=== PATIENT | female | born 1990 | race Caucasian/White ===

== ENCOUNTER 2019-03-04 07:30 | Inpatient (IN) | payer OTHER ==
[~2019-03-04] VITALS: Ht 172.7 cm; Wt 143.0 kg
[~2019-03-04 07:30] MED LIST: ABX; BC PILLS; BCP; ERYT500 PO; FAMO20 PO; HYDACE5 PO; IBUP800 PO; LORA1 PO; METO10 PO; ONDA4ODT MM; ONDA8ODT MM; OXYACE5T PO; PROC25S PR; Verotin-Gr Cap1 EACH PO; [UNRECOGNIZED DRUG - REMARK]
[2019-05-03 10:22] LABS: BASOPHILS ABSOLUTE AUTO 0.05 K/mm3 (0.00-0.23); BASOPHILS PERCENT AUTO 1 % (0-2); EOSINOPHILS ABSOLUTE AUTO 0.11 K/mm3 (0.00-0.68); EOSINOPHILS PERCENT AUTO 1 % (0-6); Hematocrit 35.1 % (33.0-51.0); Hemoglobin 10.7 g/dL (11.5-16.0); IMMATURE GRAN ABSOLUTE AUTO 0.14 K/mm3 (0.00-0.10); IMMATURE GRAN PERCENT AUTO 2 % (0-1); LYMPHOCYTES ABSOLUTE AUTO 1.68 K/mm3 (0.84-5.20); LYMPHOCYTES PERCENT AUTO 18 % (21-46); MONOCYTES ABSOLUTE AUTO 0.31 K/mm3 (0.16-1.47); MONOCYTES PERCENT AUTO 3 % (4-13); Mean Corpuscular HGB 25.1 pg (26.0-34.0); Mean Corpuscular HGB Conc 30.5 g/dL (31.5-36.5); Mean Corpuscular Volume 82 fL (80-100); Mean Platelet Volume 12.8 fL (9.1-12.4); NEUTROPHILS ABSOLUTE AUTO 7.08 K/mm3 (1.96-9.15); NEUTROPHILS PERCENT AUTO 76 % (41-73); Platelet Count 170 K/mm3 (150-400); RDW Coefficient Variation 14.7 % (11.7-14.2); RDW Standard Deviation 44.3 fL (35.1-46.3); Red Blood Cell Count 4.26 M/mm3 (3.80-5.20); White Blood Cell Count 9.37 K/mm3 (4.00-11.30)
--- NOTE | 2019-05-03 10:43 | NUR ---
PRE-OP TEACHING AND INSTRUCTIONS GIVEN RELATED TO PRE-OP, SIGNATURE COMPLETED EXCEPT CONSENT FOR PERSON IN OR - [place] NOT HERE TODAY. PRE-OP SCRUBS GIVEN AND EXPLANINED W/COPY OF DIRECTIONS - PT VERBALIZED UNDERSTANDING SIGNED AND WITNESSED REFUSAL TO REMOVE JEWELRY FOR TX AND/OR OR PROCEDURE - UNABLE TO REMOVE NOSE PIERCING AND BILATERAL EAR PIERCINGS - PT VERBALIZED UNDERSTANDING TO BE HERE AT 0530 05/04/19, DENIED TOUR OR QUESTIONS AT THIS TIME. REQUEST LC AFTER C/S - WRITTEN ON [employer]
--- NOTE | 2019-05-04 09:01 | NUR ---
05/04/19 0901 Astrid Drake 0813 DELIVERY VIABLE MALE , WEIGHT 3605 GMS, 7LBS 15 OZ, LENGTH 21 INCHES, HEAD 15 INCHES, CHEST 13 INCHES. APGARS 8/8. UMBILICIAL CORD BLOOD COLLECTED, GIVEN TO CHRISTIANA GARCIA.
[2019-05-05 06:35] LABS: Hemoglobin 9.5 g/dL (11.5-16.0); Mean Corpuscular HGB 24.9 pg (26.0-34.0); Mean Corpuscular HGB Conc 30.6 g/dL (31.5-36.5); Mean Corpuscular Volume 81 fL (80-100); Mean Platelet Volume 12.6 fL (9.1-12.4); Platelet Count 138 K/mm3 (150-400); RDW Coefficient Variation 14.9 % (11.7-14.2); RDW Standard Deviation 44.4 fL (35.1-46.3); Red Blood Cell Count 3.81 M/mm3 (3.80-5.20); White Blood Cell Count 11.51 K/mm3 (4.00-11.30)
--- NOTE | 2019-05-05 16:10 | NUR ---
Assumed care from Zahra Segura RN.
--- NOTE | 2019-05-05 16:34 | NUR ---
CONSULT PRIOR TO DISCHARGE HOME. BF HER FIRST BABY DID NOT GO WELL, AND HER PRODUCTION WAS LIMITED. INSTRUCT/DEMO SELF EBM TO HELP ENTICE A LATCH, POSITIONING TO HELP ACHIEVE A DEEPER ASYMETRIC LATCH AND FURTHER WIDEN THE LATCH. SHE IS LOVING AND HANDLES BABY WELL. HAS ALREADY STARTED PUMPING TO STIMULATE PRODUCTION. INSTRUCT TO PUMP FOR 10 MINUTES PC QF UNTIL SHE CAN PUMP 1 OZ OF MILK, THEN DECREASE PUMPING TO ONLY 5 MINUTES 2-3X/DAY FOR COMFORT OF ENGORGEMENT. INSTRUCT IN CHANGES TO EXPECT DURING THE FIRST WEEK WITH BABY AND WITH FEEDINGS AND REFERRED TO SEVERAL PAGES IN THE BF BOOKLET FOR PHOTOS AND INFORMATION. QUESTIONS ANSWERED, MOTIVATED LEARNER.
--- NOTE | 2019-05-05 17:00 | NUR ---
Medicated pt w/motirn per request. Denies other needs at this time.
--- NOTE | 2019-05-06 10:38 | NUR ---
READY TO DC HOME, WILL STOP BY DR CRAWFORD OFFICE TO GET SCRIPTS
== END 2019-05-06 10:45 | disposition home or self-care (01) | DRG 788 ==
LOC: BC 05-04 05:34
PROVIDERS: ADMIT Obstetrics & Gynecology
PROC: 10D00Z1 Extraction of Products of Conception, Low, Open Approach (ICD-10-PCS; principal; 2019-05-04 07:30)
DX: O34.211 Maternal care for low transverse scar from previous cesarean delivery (principal); Z3A.39 39 weeks gestation of pregnancy; Z37.0 Single live birth
CPT/HCPCS: 36415; 85025; 85027; 85460; 96372; J0694; J1200; J1885; J2370; J2405; J2590; J2765; J2790; J3010; J7120

== ENCOUNTER → 2019-04-15 | Outpatient (CLI) | payer OTHER | END | disposition home or self-care (01) | LOC: LAB SHORT 15:31 → LAB 15:31 | DX: Z34.80 Encounter for supervision of other normal pregnancy, unspecified trimester (principal) | CPT/HCPCS: 87081; 87653 ==

== ENCOUNTER → 2019-11-23 | Outpatient (CLI) | payer OTHER | END | disposition home or self-care (01) | LOC: LAB 11:10 → LAB SHORT 11:10 | PROVIDERS: Family Medicine | DX: Z12.4 Encounter for screening for malignant neoplasm of cervix (principal) | CPT/HCPCS: 87624; 87625; G0123 ==

== ENCOUNTER → 2019-12-07 | Outpatient (CLI) | payer OTHER | END | disposition home or self-care (01) | LOC: PLD 07:59 → LAB SHORT 07:59 | DX: N87.0 Mild cervical dysplasia (principal) | CPT/HCPCS: 88305 ==

== ENCOUNTER → 2020-08-03 | Outpatient (CLI) | payer OTHER | LOC: PLD 09:17 → LAB SHORT 09:17 | DX: D22.4 Melanocytic nevi of scalp and neck (principal); D48.5 Neoplasm of uncertain behavior of skin | CPT/HCPCS: 88305 ==

== ENCOUNTER → 2021-09-18 | Outpatient (CLI) | payer OTHER ==
[~2021-09-18] MED LIST changes: +DOCU100 PO; +ONDA4 PO
[2021-09-19 10:09] LABS: Candida species (DNA Probe) Negative (NEGATIVE); G. vaginalis (DNA Probe) Negative (NEGATIVE); T. vaginalis (DNA Probe) Negative (NEGATIVE)
[2021-09-20 16:11] LABS: HPV 16 Negative (Negative); HPV 18 Negative (Negative); HPV OTHER HR TYPES Positive (Negative)
== END | disposition home or self-care (01) ==
LOC: LAB SHORT 18:21
PROVIDERS: Family Medicine
DX: Z12.4 Encounter for screening for malignant neoplasm of cervix (principal); Z11.3 Encounter for screening for infections with a predominantly sexual mode of transmission
CPT/HCPCS: 87480; 87510; 87660

== ENCOUNTER → 2021-11-06 | Outpatient (CLI) | payer OTHER | END | disposition home or self-care (01) | LOC: LAB SHORT 07:45 | DX: R87.610 Atypical squamous cells of undetermined significance on cytologic smear of cervix (ASC-US) (principal); R87.810 Cervical high risk human papillomavirus (HPV) DNA test positive | CPT/HCPCS: 88305 ==

== ENCOUNTER → 2022-10-22 | Outpatient (CLI) | payer OTHER ==
[2022-10-24 18:10] LABS: HPV 16 Negative (Negative); HPV 18 Negative (Negative); HPV OTHER HR TYPES Positive (Negative)
== END | disposition home or self-care (01) ==
LOC: LAB SHORT 17:40 → LAB 17:40
PROVIDERS: Family Medicine
DX: Z12.4 Encounter for screening for malignant neoplasm of cervix (principal)
CPT/HCPCS: 87624; G0145

== ENCOUNTER → 2022-12-05 | Outpatient (CLI) | payer OTHER | END | disposition home or self-care (01) | LOC: LAB SHORT 08:07 → PLD 08:07 | DX: R87.810 Cervical high risk human papillomavirus (HPV) DNA test positive (principal) | CPT/HCPCS: 88305 ==

== ENCOUNTER → 2023-02-20 | Outpatient (CLI) | payer OTHER ==
[2023-02-20 14:55] LABS: G. vaginalis (DNA Probe) Positive (NEGATIVE); T. vaginalis (DNA Probe) Negative (NEGATIVE)
[2023-02-20 14:56] LABS: Candida species (DNA Probe) Negative (NEGATIVE)
[2023-02-22 01:09] LABS: CHLAMYDIA TRACHOMATIS, NAA Negative (Negative)
== END | disposition home or self-care (01) ==
LOC: EDSTATUS 10:30 → LAB SHORT 11:09 → LAB 11:09
PROVIDERS: Advanced Practice Midwife
DX: Z11.3 Encounter for screening for infections with a predominantly sexual mode of transmission (principal); N76.0 Acute vaginitis
CPT/HCPCS: 87480; 87491; 87510; 87591; 87660

== ENCOUNTER → 2023-07-16 | Outpatient (CLI) | payer OTHER | LOC: LAB 17:41 → LAB SHORT 17:41 | DX: R30.0 Dysuria (principal) | CPT/HCPCS: 87077; 87086; 87186 ==

== ENCOUNTER → 2023-10-28 | Outpatient (CLI) | payer OTHER | LOC: LAB 17:16 → LAB SHORT 17:16 | DX: Z12.4 Encounter for screening for malignant neoplasm of cervix (principal) | CPT/HCPCS: G0123 ==

== ENCOUNTER → 2024-03-25 | Outpatient (CLI) | payer OTHER ==
[2024-03-31 13:14] LABS: OVA AND PARASITE,FECAL INTERP Negative (Negative)
== END ==
LOC: LAB 23:15 → LAB SHORT 23:15
PROVIDERS: Family Medicine
DX: B83.9 Helminthiasis, unspecified (principal)
CPT/HCPCS: 87177; 87209

== ENCOUNTER → 2024-08-05 | Outpatient (CLI) | payer OTHER | LOC: LAB SHORT 18:14 → LAB 18:14 | DX: Z34.83 Encounter for supervision of other normal pregnancy, third trimester (principal) | CPT/HCPCS: 87081; 87150 ==

== ENCOUNTER 2024-08-17 13:13 | Inpatient (IN) | payer OTHER ==
[2024-08-17] VITALS (25 sets, daily range): BP systolic 76–131; BP diastolic 43–66
[~2024-08-17] VITALS: Ht 172.7 cm; Wt 101.4 kg
[2024-08-17] MEDS ORDERED: Metoclopramide HCl 5MG / ML 2ML Vial IV ONE (13:45)
[2024-08-17] MEDS ORDERED: Lactated Ringer's 1,000 ML IV SCH ×2 (13:45)
[2024-08-17] MEDS ORDERED: Citric Acid/Sodium Citrate 30 ML BTL PO SCH (13:45)
[2024-08-17] MEDS ORDERED: CeFAZolin Sodium 2,000 MG in NS 100 ML IV SCH (13:45)
[2024-08-17] MEDS ORDERED: Lactated Ringer's 1,000 ML IV ONE (13:51)
[2024-08-17 14:10] LABS: BASOPHILS PERCENT AUTO 1 % (0-2); EOSINOPHILS ABSOLUTE AUTO 0.06 K/mm3 (0.00-0.68); EOSINOPHILS PERCENT AUTO 1 % (0-6); Hematocrit 34.4 % (33.0-51.0); Hemoglobin 11.2 g/dL (11.5-16.0); IMMATURE GRAN ABSOLUTE AUTO 0.22 K/mm3 (0.00-0.10); IMMATURE GRAN PERCENT AUTO 2 % (0-1); LYMPHOCYTES ABSOLUTE AUTO 2.23 K/mm3 (0.84-5.20); LYMPHOCYTES PERCENT AUTO 18 % (21-46); MONOCYTES ABSOLUTE AUTO 0.49 K/mm3 (0.16-1.47); MONOCYTES PERCENT AUTO 4 % (4-13); Mean Corpuscular HGB 27.1 pg (26.0-34.0); Mean Corpuscular HGB Conc 32.6 g/dL (31.5-36.5); Mean Corpuscular Volume 83 fL (80-100); Mean Platelet Volume 11.8 fL (9.1-12.4); NEUTROPHILS ABSOLUTE AUTO 9.27 K/mm3 (1.96-9.15); NEUTROPHILS PERCENT AUTO 75 % (41-73); Platelet Count 164 K/mm3 (150-400); RDW Coefficient Variation 13.4 % (11.7-14.2); RDW Standard Deviation 40.6 fL (35.1-46.3); Red Blood Cell Count 4.14 M/mm3 (3.80-5.20); White Blood Cell Count 12.37 K/mm3 (4.00-11.30)
[2024-08-17 15:56] LABS: Albumin, Blood 2.8 g/dL (3.4-5.0); Albumin/Globulin Ratio 0.7 (0.8-1.8); Bilirubin, Total 0.5 mg/dL (0.1-1.0); Bun/Creatinine Ratio 18.2 (12.0-20.0); Calcium, Blood 8.8 mg/dL (8.5-10.1); Creatinine, Blood 0.55 mg/dL (0.40-1.00); Globulin, Blood 3.8 g/dL (2.2-4.0); Potassium, Blood 4.1 mmol/L (3.5-5.5); Total Protein, Blood 6.6 g/dL (6.4-8.2)
[2024-08-17] MEDS ORDERED: FentaNYL Citrate 50 MCG/ML 2 ML Injection ONE (16:42)
[2024-08-17] MEDS ORDERED: Phenylephrine HCl 100 MCG/ML-NS 10MLSYR (1MG/10ML) ONE (16:45)
[2024-08-17] MEDS ORDERED: Oxytocin 10 Unit / ML Vial ONE ×2 (17:03→18:16)
--- NOTE | 2024-08-17 17:57 | NUR ---
08/17/24 1757 Soha Lara FHTS 138 PRIOR TO PROCEDURE. DELIVERY OF VIABLE FEMALE , APGARS 8/9. WEIGHT 3755 GMS. PLACENTA DELIVERED COMPLETE, MANUALLY. CORD BLOOD SENT WITH BABY'S NURSE.
[2024-08-17] MEDS ORDERED: Rho(D) Immune Globulin 300 MCG / SYR IM ONE ×2 (18:50→21:20)
[2024-08-17] MEDS ORDERED: OxyCODONE HCL 5 MG TAB PO PRN (18:50)
[2024-08-17] MEDS ORDERED: Lanolin Cream TOP PRN (18:50)
[2024-08-17] MEDS ORDERED: Misoprostol 200 MCG Tab PR PRN (18:50)
[2024-08-17] MEDS ORDERED: Promethazine HCl 25 MG Tab PO PRN (18:50)
[2024-08-17] MEDS ORDERED: Methylergonovine Maleate 0.2 MG Tab PO PRN (18:55)
[2024-08-17] MEDS ORDERED: Acetaminophen 500 MG Tab PO PRN (18:55)
[2024-08-17] MEDS ORDERED: Ondansetron HCl 2 MG / ML 2ML Vial IV PRN (18:55)
[2024-08-17] MEDS ORDERED: Carboprost Tromethamine 250 MCG/ML 1ML Amp IM PRN (18:55)
[2024-08-17] MEDS ORDERED: Methylergonovine Maleate 0.2MG / ML 1ML Amp IM PRN (18:55)
[2024-08-17] MEDS ORDERED: ePHEDrine Sulfate 50 MG/ML 1ML Injection IV PRN (19:00)
[2024-08-17] MEDS ORDERED: Ketorolac Tromethamine 30mg Vial IV SCH (19:00)
[2024-08-17] MEDS ORDERED: Naloxone HCl 0.4MG / ML 1ML Vial IV PRN (19:00)
[2024-08-17] MEDS ORDERED: Misoprostol 200 MCG Tab BC ONE (19:05)
[2024-08-18] VITALS (7 sets, daily range): BP systolic 101–119; BP diastolic 57–70
[2024-08-18] MEDS ORDERED: Ibuprofen 400 MG Tab PO SCH
[2024-08-18] MEDS ORDERED: Simethicone 80 MG Chew PO ONE (00:40)
--- NOTE | 2024-08-18 00:51 | NUR ---
PATIENT UP TO SIDE OF BED. TOLERATED WELL. TRANSFER TO BEDSIDE CHAIR, WHERE SHE IS INFANT. INSTRUCTED TO CALL WHEN READY TO GET BACK TO BED.
[2024-08-18] MEDS ORDERED: Simethicone 80 MG Chew PO PRN (04:45)
[2024-08-18 06:49] LABS: BASOPHILS ABSOLUTE AUTO 0.07 K/mm3 (0.00-0.23); BASOPHILS PERCENT AUTO 1 % (0-2); EOSINOPHILS ABSOLUTE AUTO 0.12 K/mm3 (0.00-0.68); EOSINOPHILS PERCENT AUTO 1 % (0-6); Hematocrit 29.7 % (33.0-51.0); Hemoglobin 9.5 g/dL (11.5-16.0); IMMATURE GRAN PERCENT AUTO 1 % (0-1); LYMPHOCYTES ABSOLUTE AUTO 2.22 K/mm3 (0.84-5.20); LYMPHOCYTES PERCENT AUTO 19 % (21-46); MONOCYTES ABSOLUTE AUTO 0.64 K/mm3 (0.16-1.47); MONOCYTES PERCENT AUTO 5 % (4-13); Mean Corpuscular HGB 26.8 pg (26.0-34.0); Mean Corpuscular Volume 84 fL (80-100); Mean Platelet Volume 12.1 fL (9.1-12.4); NEUTROPHILS ABSOLUTE AUTO 8.88 K/mm3 (1.96-9.15); NEUTROPHILS PERCENT AUTO 74 % (41-73); Platelet Count 155 K/mm3 (150-400); RDW Coefficient Variation 13.6 % (11.7-14.2); Red Blood Cell Count 3.55 M/mm3 (3.80-5.20); White Blood Cell Count 12.03 K/mm3 (4.00-11.30)
[2024-08-18] MEDS ORDERED: OxyCODONE HCL 5 MG TAB PO PRN (09:45)
[2024-08-18] MEDS ORDERED: Ibuprofen 400 MG Tab PO PRN (14:40)
[2024-08-19 02:37] VITALS: BP 108/58
[2024-08-19 07:42] VITALS: BP 116/65
--- NOTE | 2024-08-19 09:30 | NUR ---
Printed d/c instructions and teaching reviewed w/pt and SO. Questions answered to their satisfaction. Deny additional questions/concerns. Verbalized understanding of teaching and follow up.
[2024-08-19] MEDS ORDERED: IBUP800 PO (09:46)
[2024-08-19] MEDS ORDERED: Percocet 5-3251 EACH PO (09:47)
[2024-08-19] MEDS ORDERED: OXAYDO5 M1 PO (09:49)
[2024-08-19 11:16] VITALS: BP 119/70
--- NOTE | 2024-08-19 11:33 | NUR ---
NOTE DISCHARGE PAPERWORK AND PACKET PRINTED, AND INSTRUCTIONS REVIEWED WITH MOTHER AND FATHER. VERBALIZED UNDERSTANDING. ALL QUESTIONS AND CONCERNS ADDRESSED.NO OTHER NEEDS OR QUESTIONS. LEFT AMBULATORY WITH FATHER OF BABY AND BABY IN [facility]
== END 2024-08-19 11:25 | disposition home or self-care (01) | DRG 788 ==
LOC: BC 13:50
PROVIDERS: ADMIT Family Medicine
PROC: 3E0234Z Introduction of Serum, Toxoid and Vaccine into Muscle, Percutaneous Approach (ICD-10-PCS; 2024-08-17)
PROC: 10D00Z1 Extraction of Products of Conception, Low, Open Approach (ICD-10-PCS; principal; 2024-08-17 15:00)
DX: O34.211 Maternal care for low transverse scar from previous cesarean delivery (principal); O26.893 Other specified pregnancy related conditions, third trimester; Z67.11 Type A blood, Rh negative; Z3A.39 39 weeks gestation of pregnancy; Z37.0 Single live birth; Z88.0 Allergy status to penicillin; Z91.048 Other nonmedicinal substance allergy status; Z88.2 Allergy status to sulfonamides; Z88.1 Allergy status to other antibiotic agents
CPT/HCPCS: 36415; 80053; 82947; 85025; 85460; 86850; 86900; 86901; A9270; J0690; J1885; J2371; J2405; J2590; J2765; J2791; J3010; J7120

== ENCOUNTER → 2025-01-14 | Outpatient (CLI) | payer OTHER ==
[~2025-01-14] MED LIST changes: +OXAYDO5 M1 PO; +Percocet 5-3251 EACH PO
[2025-01-22 09:53] LABS: HPV HIGH RISK BY TMA Not Detected; HPV SOURCE Cervical
== END ==
LOC: LAB 11:46 → LAB SHORT 11:46
PROVIDERS: Family Medicine
DX: Z12.4 Encounter for screening for malignant neoplasm of cervix (principal)
CPT/HCPCS: 87624; G0123